=== PATIENT | female | born 1985 | race Caucasian/White ===

== ENCOUNTER 2019-02-11 09:21 | Emergency (ER) | payer OTHER ==
[~2019-02-11] VITALS: Ht 165.1 cm; Wt 68.1 kg
[~2019-02-11 09:21] MED LIST: ALBU8.5H8; PRENAT PO
[2019-02-11 09:29] VITALS: Ht 165.1 cm; Wt 68.1 kg
[2019-02-11] MEDS ORDERED: ALBUTEROL 0.083% (NEB) 2.5 MG/3 ML AMP NEB STA (12:52)
[2019-02-11] MEDS ORDERED: IPRATROPIUM (NEB) 0.5 MG/2.5 ML AMP NEB STA (12:52)
[2019-02-11] MEDS ORDERED: ACETAMINOPHEN 500 MG TAB PO STA (12:52)
[2019-02-11] MEDS ORDERED: PROMETHAZINE/DM (CUP) PO ONE (13:00)
[2019-02-11] MEDS ORDERED: IBUPROFEN 600 MG TAB PO ONE (13:00)
--- NOTE | 2019-02-11 13:25 | ERD ---
ER Documentation Chief Complaint Chief Complaint cough runny nose x 2 days HPI This is a 33-year-old female with a nonsignificant past medical history presents ED with complaints of fever times 2 days. Patient admits to body aches, headache, ear pain, sore throat, runny nose, cough with sputum production. Denies difficulty breathing breathing, breath, chest pain, nausea, vomiting, diarrhea, constipation, abdominal pain all other symptoms. Patient did not receive a flu shot this year. ROS All systems reviewed and are negative except as per history of present illness. Medications Home Meds Reported Medications Multivit/Min/Fol Ac/Iron/Pren* ( S*) 1 Tab Tab, 1 TAB PO DAILY, TAB 10/15/14 Albuterol Sulfate* (Proair HFA*) 8.5 Gm Hfa.aer.ad 01/30/13 Allergies Allergies: Coded Allergies: No Known Allergy (Verified , 07/05/14) PMhx/Soc History of Surgery: Yes (C SECTION) Anesthesia Reaction: No Hx Neurological Disorder: No Hx Respiratory Disorders: Yes (ASTHMA) Hx Cardiac Disorders: No Hx Psychiatric Problems: No Hx Miscellaneous Medical Probl: No Hx Alcohol Use: No Hx Substance Use: No Hx Tobacco Use: No FmHx Family History: No diabetes Physical Exam Vitals Vital Signs Date Temp Pulse Resp B/P (MAP) Pulse Ox O2 O2 Flow FiO2 Time Delivery Rate 02/11/19 82 16 99 21 13:24 02/11/19 100.4 90 18 127/72 98 09:29 (90) Physical Exam Physical Exam Vitals signs: Reviewed by me. General: Well developed, well nourished, in no acute distress. Patient is awake and alert. Head: Normocephalic, atraumatic. Eyes: Normal conjunctiva, Pupils PERRLA, EOM intact grossly ENT: Pharynx is clear, Moist mucous membranes, external ears, nose and mouth no rmal, no tonsillar adenopathy, exudate or erythema, no kissing tonsils, no uvula deviation, tympanic membrane visualized bilaterally with no bulging, erythema, purulent air-fluid line seen, normal nasal mucosa Neck: Supple, no masses, lymphadenopathy or JVD, no meningeal signs Respiratory: Clear to auscultation bilaterally with no rhonchi, rales, no distress, wheezing Cardiovascular: RRR, no murmurs, rubs, or gallops Neurologic: Alert and oriented, moving all extremities, normal speech, no focal weakness, no cerebellar signs. Normal mentation Skin: warm and dry, No rash Psych: Normal mood Results 24 hrs Current Medications Medications Dose Sig/Adarsh Start Time Status Last (Trade) Ordered Route PRN Stop Time Admin Dose Reason Admin Ibuprofen 600 mg ONCE ONCE 02/11/19 DC 02/11/19 (Motrin) PO 13:00 13:11 02/11/19 13:01 1,000 mg ONCE STAT 02/11/19 DC 02/11/19 Acetaminophen PO 12:52 13:11 (Tylenol 02/11/19 12:54 Tab) Albuterol 5 mg ONCE STAT 02/11/19 DC 02/11/19 (Proventil NEB 12:52 13:20 0.083% (Neb)) 02/11/19 12:54 Ipratropium 0.5 mg ONCE STAT 02/11/19 DC 02/11/19 Mck[place]rick NEB 12:52 13:20 (Atrovent 02/11/19 12:54 0.02% (Neb)) Promethazine 5 ml ONCE ONCE 02/11/19 DC HCl/ PO 13:00 Dextromethorp 02/11/19 13:01 juarez (Phenergan-Dm ) Procedures/MDM EKG, MONITORS, & DIAGNOSTIC IMAGING: [place] [id number] Radiology Main Line: [phone] DIAGNOSTIC IMAGING REPORT Patient: TONYA MORROW : 1985 Age: 33 Sex: F MR #: [id number] DOS: 02/11/19 1252 Ordering MD: MEL CASTRO PA-C Location: [facility] Room/Bed: PROCEDURE: XR Chest. CLINICAL INDICATION: Cough TECHNIQUE: Single frontal view of the chest was obtained COMPARISON: CR CHEST 04/27/2013 FINDINGS: The heart and mediastinum are within normal limits. There is a small right upper lobe calcified granuloma. The lungs are otherwise clear. There is no pleural effusion or pneumothorax. RPTAT: AA IMPRESSION: No acute disease. .Charli Acosta MD, MD Date Time Electronically viewed and signed by .Charli Acosta MD, MD on 02/11/2019 13:17 .S/ CC: MEL CASTRO PA-C [id number] LAB INTERPRETATION: flu + ER COURSE: The patient was given Tylenol Motrin, promethazine DM and breathing treatment The medication was well tolerated and the patient reports improvement in symptoms. The patient was stable throughout ED course. I kept the patient and/or family informed of laboratory and diagnostic imaging results throughout the emergency room course. The patient was promptly evaluated and a treatment plan was devised based on H&P and other data. This plan was discussed with the patient who agreed and had no further questions or concerns prior to discharge. MEDICAL DECISION MAKING: This is a 33-year-old female with a nonsignificant past medical history presents ED with flulike symptoms for the past 2 days. Influenza test is positive. The patient's clinical presentation is very consistent with influenza. No evidence of pneumonia. The patient is well-appearing without respiratory distress. Normal oxygen saturation. X-ray imaging not indicated. The patient does not exhibit any clinical signs or symptoms concerning for serious bacterial infection or systemic illness. Based on history and clinical exam findings the patient does not appear to have evidence of pneumonia, strep pharyngitis, urinary tract infection, bacteremia, sepsis, or meningitis. For these reasons I do not believe it is necessary to obtain laboratory testing or diagnostic imaging. I believe it would be appropriate for symptom control, and close outpatient primary care follow-up. We discussed follow up with the patient's primary care doctor within 24 to 48 hours as needed. We also discussed return to the emergency room for worsening symptoms or worsening condition. DISPOSITION PLAN: We discussed follow up with the patient's primary care doctor within 24 to 48 hours. Patient counseled regarding my diagnostic impression and care plan. Prior to discharge all questions answered. Pt agrees with treatment plan and understands strict return precautions. Precautionary instructions provided including instructions to return to the ER if not improving or for any worsening or changing symptoms or concerns. SPECIALIST FOLLOW UP RECOMMENDED: None Patient has been advised to follow up with primary care in 1-2 days. Disclaimer: Inadvertent spelling and grammatical errors are likely due to EHR/dictation software use and do not reflect on the overall quality of patient care. Also, please note that the electronic time recorded on this note does not necessarily reflect the actual time of the patient encounter. Departure Diagnosis: Primary Impression: Influenza Condition: Stable Patient Instructions: Influenza (Adult) [facility] Additional Instructions: Paciente aconseja volver a Departamento de urgencias inmediatamente para sntomas nuevos o que empeoran . Paciente aconseja posteriores con el PCP en 1-2 cannon . Paciente verbaliza la comprehensin y est de acuerdo con el tratamiento y el curso de accin. Si el paciente no tiene ninguna de atencin primaria pueden seguir con [facility] [address] [place] [address] o [facility] + [address] [address] MEL CASTRO PA-C Feb 11, 2019 13:25
[2019-02-11] MEDS ORDERED: OSEL75CA23 PO (13:39)
[2019-02-11] MEDS ORDERED: IBUP-1542 PO (13:39)
[2019-02-11] MEDS ORDERED: ACET500C5 PO (13:39)
[2019-02-11] MEDS ORDERED: D-ME473S2 PO (13:39)
[2019-02-11 13:49] VITALS: BP 111/55; PULSE 89; RESP 18
== END 2019-02-11 13:54 | disposition home or self-care (01) ==
LOC: FTE 09:21
DX: J10.1 Influenza due to other identified influenza virus with other respiratory manifestations (principal); J45.901 Unspecified asthma with (acute) exacerbation
CPT/HCPCS: 71045; 87400; 94664